=== PATIENT | male | born 1965 | race Caucasian/White ===

== ENCOUNTER 2020-02-10 11:10 | Day surgery (SDC) | payer BC, OTHER ==
[2020-02-10] MEDS ORDERED: Iopamidol 200-M 10 ML vial ITHECAL ONE (12:30)
[2020-02-10] MEDS ORDERED: Lidocaine 2% 5 ML SDV INJECT ONE (12:30)
[2020-02-10] MEDS ORDERED: Betamethasone Acetate/Betamethasone Sod Phosphate 30 MG/5 ML MDV EPIDUR ONE (12:30)
[2020-02-10] MEDS ORDERED: Ropivacaine 0.5% 5 MG/ML 30 ML SDV INJECT ONE (12:30)
--- NOTE | 2020-02-10 18:13 | OR ---
SURGEON: Vianney Benton D.O. DATE OF PROCEDURE: 02/10/2020 PRIMARY SURGEON: Vianney Benton D.O. OR STAFF PRESENT: 1. Latoya Mckinnon RT. 2. David Triplett RN. 3. aMlachi Grimaldo RN. WOUND CLASS: I. PREOPERATIVE DIAGNOSES: 1. Lumbar spondylosis. 2. Lumbar facet syndrome. 3. Chronic low back pain. 4. Lumbar degenerative disk disease. POSTOPERATIVE DIAGNOSES: 1. Lumbar spondylosis. 2. Lumbar facet syndrome. 3. Chronic low back pain. 4. Lumbar degenerative disk disease. PROCEDURES PERFORMED: 1. Bilateral L3-4 facet joint injections. 2. Bilateral L4-5 facet joint injections. 3. Bilateral L5-S1 facet joint injections. 4. Fluoroscopic guidance for needle placement. 5. Local with oral valium for sedation. SCREENING QUESTIONS: The patient answered "No" to all the following questions: 1. Are you allergic to iodine, Betadine or latex? 2. Do you have a bleeding disorder? 3. Are you on anti-inflammatories or blood thinners? 4. Do you have any current local or systemic infections? The patient had the procedure thoroughly explained including risks, benefits and alternatives. Consent was signed in my clinic indicating understanding and willingness to proceed. The patient presented to [facility] and was escorted to the dressing room to disrobe and change into a hospital gown. Preoperative history and screening were performed by my nurse. Vital signs were taken and stable. The patient reported that Valium 10 milligrams was taken prior to the procedure. The patient was brought back to the procedure room and placed in the prone position on the procedure room table. A pillow was placed under the abdomen in order to flatten the lumbar lordosis. The back was prepped with ChloraPrep and sterilely draped. All personnel in the procedure room were dressed in appropriate attire including surgical scrubs, head and shoe covers. This was to ensure sterility while in the treatment room. During the time fluoroscopy was in use all personnel in the operating room wore lead ga with thyroid collars. Sterile technique was used during the procedure. The fluoroscope was positioned to provide a right oblique view. Then the right L3-4 facet injection was begun by anesthetizing the skin and soft tissues with 2 cubic centimeters of 2% Preservative-Free Lidocaine with a 25-gauge 1.5 inch needle. There were no signs of infection at the site of needle skin insertions. Using fluoroscopic guidance a sterile 22-gauge 3.5 inch spinal needle was positioned at the junction of the " ear of the marylou dog" Precise needle placement was confirmed by fluoroscopy and 0.2 cubic centimeters of IsoVue-200 contrast dye which was injected through microbore tubing under live fluoroscopy and showed no intravascular flow pattern and adequate flow over the target facet joint. Then 1.0 cubic centimeters of a mixture of Celestone and local was injected slowly without complications after negative aspiration. The procedure was repeated on the left As above for the left L3-4 facet joint injection without complications Then the fluoroscope was positioned to provide a right oblique view for the right L4-5 facet joint injection. This was begun by anesthetizing the skin and soft tissues. The fluoroscope was positioned and a sterile 22-gauge 3.5 inch needle was placed at the junction of the "ear of the Marylou dog" . Precise needle placement was confirmed by fluoroscopy and with 0.2 cubic centimeters increments of IsoVue-200 contrast dye was injected through microbore tubing under live fluoroscopy which showed no intravascular flow pattern and adequate flow over the target medial branch. After negative aspiration,1.0 cubic centimeters of Celestone and local was injected without complications. The procedure was then repeated for the left L4-5 facet joint injection as above without complications. The fluoroscope was then positioned to provide a right L5-S1 facet joint injection This was begun by anesthetizing the skin and soft tissues over the right sacral sulcus. Then using fluoroscopic guidance, a sterile 22-gauge 3.5 inch spinal needle was positioned at the junction of the "ear of the Marylou dog". Precise needle placement was confirmed by fluoroscopy in AP and oblique views, and with 0.2 cubic centimeters increments of IsoVue-200 contrast dye was injected through microbore tubing under live fluoroscopy and showed no intravascular flow pattern and adequate flow over the target joint. After negative aspiration, 1.0 cubic centimeters of Celestone and local was injected. No complications were noted. Procedure was then repeated for the left L5-S1 facet joint injection as above without complications. The procedure was well tolerated and vital signs were stable during and after the procedure. The staff escorted the patient to the recovery area in stable condition. The patient was given both oral and written discharge and followup instructions. The patient voiced understanding including understanding of those signs and symptoms that would require emergency care and knows how to contact the office if there are any questions or concerns in the meantime. PREOPERATIVE PAIN: 02/15 POSTOPERATIVE PAIN: 08/18 FOLLOWUP: In the Pain Clinic with pain diary in one month. ROMINA / BRII /[id number] JULIAN
== END 2020-02-10 13:30 | disposition home or self-care (01) ==
LOC: MW.SDS 11:10
PROVIDERS: ATTEND Anesthesiology
DX: G89.29 Other chronic pain (principal); M51.36 Other intervertebral disc degeneration, lumbar region; M47.817 Spondylosis without myelopathy or radiculopathy, lumbosacral region; M79.18 Myalgia, other site; Z88.0 Allergy status to penicillin
CPT/HCPCS: 64493; 64494; 64495; J0702; J2001; J2795; Q9966

== ENCOUNTER 2020-04-30 18:01 | Emergency (ER) | payer OTHER, BC ==
[2020-04-30] MEDS ORDERED: Sodium Chloride 0.9% 2.5 ML Syringe FLUSH PRN (18:15)
[2020-04-30] MEDS ORDERED: Sodium Chloride 0.9% 10 ML Syringe FLUSH PRN (18:15)
[2020-04-30] MEDS ORDERED: fentaNYL 50 MCG/ML SDV IVPUSH ONE (18:41)
[2020-04-30] MEDS ORDERED: Ondansetron 4 MG/2 ML SDV IVPUSH ONE (18:41)
[2020-04-30 18:44] LABS: BLOOD UREA NITROGEN,BUN 17 mg/dL (7.0-18.0); CARBON DIOXIDE,CO2 28.8 mmol/L (21.0-32.0); CHLORIDE,CL 102 mmol/L (98-107); GLUCOSE RANDOM 111 mg/dL (74-106); POTASSIUM,K 3.9 mmol/L (3.5-5.1); SODIUM,NA 139 mmol/L (136-148)
--- NOTE | 2020-04-30 18:50 | PCM.SN.2 ---
- Free Text/Narrative Note: Brief triage/screening note 54-year-old male with a past medical history of CAD status post stenting x3, hypertension, hyperlipidemia, hernia presenting for right flank pain. Was seen at [facility] on 04/25/2020 and diagnosed with a 3 mm kidney stone. Was prescribed Percocet and Flomax and referred to a urologist. Has had severe intermittent pain throughout the week with nausea and constipation. Apparently spoke with the [facility] clinic who directed him to come to our emergency department, he was told that the urologist would come see him in the emergency departments evening to remove the kidney stone. Complains of persistent pain and nausea. Ordered IV access, labs, urinalysis, fentanyl, Zofran. Will sign out to oncoming nighttime physician Dr. Tafoya.
[2020-04-30] MEDS ORDERED: Ketorolac 15 MG/ML SDV IVPUSH ONE (19:30)
[2020-04-30] MEDS ORDERED: Lactated Ringers 1,000 ML IV ONE (19:30)
--- NOTE | 2020-04-30 19:49 | EDM.PDOC ---
ED HPI GENERAL MEDICAL PROBLEM - General Chief Complaint: Flank Pain Time Seen by Provider: 04/30/20 18:14 Source of Information: Reports: Patient History Limitations: Reports: No Limitations - History of Present Illness INITIAL COMMENTS - FREE TEXT/NARRATIVE: 54-year-old male with history of CAD with 3 stents, HTN, HLD, right-sided inguinal hernia presents with right flank pain. Pain is localized to the right flank and radiates to the right lower quadrant, described as sharp, intermittent, severe, with no alleviating or exacerbating factors. Patient was seen on Sunday at [facility] and was told that he had. 3 mm stone "high in the right flank"with a right-sided inguinal hernia. He was prescribed Percocet and Flomax. Pain has gotten worse since his discharge from the ER, associated with nausea, vomiting, chills, persistent pain despite taking Percocet 2-3 tabs every 4 hours. Denies fever, hematuria, chest pain, shortness of breath. ROS: A 10-point review of systems, other than pertinent positives and negatives as stated per HPI, is otherwise negative Past medical history: No additional pertinent history Past Surgical history: No additional pertinent history Social history: No additional pertinent history Family history: No additional pertinent history PHYSICAL EXAM General: AOx4, GCS = 15, moderate distress HEENT: dry mucous membrane Neck: supple, no meningismus, no Kernig or Brudzinski Cardiac: S1S2 RRR Respiratory: CTAB, no crackles or rales, no wheezing Abdomen: Soft, RLQ ttp, no rebound or guarding, nondistended, no pulsatile mass. Back: nontender, right CVA tenderness Musculoskeletal: NVI distally, no deformity Neuro: No focal deficits, CN 2 - 12 WNL. right flank Pain Score (Numeric/FACES): 10 - Related Data Allergies Allergy/AdvReac Type Severity Reaction Status Date / Time Penicillins Allergy Other Verified 04/30/20 18:39 Home Meds: Home Meds Enalapril [Vasotec] 1 tab PO ASDIRECTED 04/30/20 [History] Metoprolol Succinate 1 tab PO ASDIRECTED 04/30/20 [History] atorvaSTATin [Lipitor] 1 tab PO ASDIRECTED 04/30/20 [History] Past Medical History Cardiovascular History: Reports: High Cholesterol, Hypertension Gastrointestinal History: Reports: GERD - Infectious Disease History Infectious Disease History: Reports: Chicken Pox ED ROS GENERAL - Review of Systems Review Of Systems: See Below (see dictation) ED EXAM, GENERAL - Physical Exam Exam: See Below (see dictation) Course - Vital Signs Last Recorded V/S: Last Vital Signs Temp 96.0 F L 04/30/20 18:23 Pulse 64 04/30/20 18:23 Resp 16 04/30/20 18:23 BP 157/111 H 04/30/20 18:23 Pulse Ox 97 04/30/20 18:23 - Orders/Labs/Meds Orders: Active Orders 24 hr Category Date Time Status Pulse Oximetry [RC] ASDIRECTED Care 04/30/20 18:15 Active Sodium Chloride 0.9% [Saline Flush] Med 04/30/20 18:15 Active 10 ml FLUSH ASDIRECTED PRN Sodium Chloride 0.9% [Saline Flush] Med 04/30/20 18:15 Active 2.5 ml FLUSH ASDIRECTED PRN Saline Lock Insert [OM.PC] Stat Oth 04/30/20 18:15 Ordered Medication Orders Sodium Chloride (Saline Flush) 10 ml FLUSH ASDIRECTED PRN PRN Reason: Keep Vein Open Last Admin: 04/30/20 18:56 Dose: 10 ml Documented by: LAURA Sodium Chloride (Saline Flush) 2.5 ml FLUSH ASDIRECTED PRN PRN Reason: Keep Vein Open Last Admin: 04/30/20 18:56 Dose: 2.5 ml Documented by: LAURA Labs: Laboratory Tests 04/30/20 04/30/20 04/30/20 Range/Units 18:17 18:17 18:30 WBC 5.91 (4.0-11.0) K/uL RBC 5.41 (4.50-5.90) M/uL Hgb 17.2 H (13.0-17.0) g/dL Hct 49.9 (38.0-50.0) % MCV 92.2 (80.0-98.0) fL MCH 31.8 (27.0-32.0) pg MCHC 34.5 (31.0-37.0) g/dL RDW Std Deviation 41.6 (28.0-62.0) fl RDW Coeff of Surendra 12 (11.0-15.0) % Plt Count 151 (150-400) K/uL MPV 10.30 (7.40-12.00) fL Neut % (Auto) 67.7 (48.0-80.0) % Lymph % (Auto) 17.9 (16.0-40.0) % [place] % (Auto) 11.8 (0.0-15.0) % Eos % (Auto) 2.4 (0.0-7.0) % Baso % (Auto) 0.2 (0.0-1.5) % Neut # (Auto) 4.0 (1.4-5.7) K/uL Lymph # (Auto) 1.1 (0.6-2.4) K/uL [place] # (Auto) 0.7 (0.0-0.8) K/uL Eos # (Auto) 0.1 (0.0-0.7) K/uL Baso # (Auto) 0.0 (0.0-0.1) K/uL Nucleated RBC % 0.0 /100WBC Nucleated RBCs # 0 K/uL INR 0.99 Lactate (0.20-2.00) mmol/L Sodium 139 (136-148) mmol/L Potassium 3.9 (3.5-5.1) mmol/L Chloride 102 (98-107) mmol/L Carbon Dioxide 28.8 (21.0-32.0) mmol/L BUN 17 (7.0-18.0) mg/dL Creatinine 1.1 (0.8-1.3) mg/dL Est Cr Clr Drug Dosing 71.78 mL/min Estimated GFR (MDRD) > 60.0 ml/min Glucose 111 H (74-106) mg/dL Calcium 9.2 (8.5-10.1) mg/dL Total Bilirubin 0.6 (0.2-1.0) mg/dL AST 21 (15-37) IU/L ALT 43 (14-63) IU/L Alkaline Phosphatase 84 (46-116) U/L Total Protein 7.3 (6.4-8.2) g/dL Albumin 3.6 (3.4-5.0) g/dL Globulin 3.7 (2.6-4.0) g/dL Albumin/Globulin Ratio 1.0 (0.9-1.6) Lipase (73-393) U/L Urine Color Urine Appearance Urine pH (5.0-8.0) Ur Specific Mobile (1.001-1.035) Urine Protein (NEGATIVE) mg/dL Urine Glucose (UA) (NEGATIVE) mg/dL Urine Ketones (NEGATIVE) mg/dL Urine Occult Blood (NEGATIVE) Urine Nitrite (NEGATIVE) Urine Bilirubin (NEGATIVE) Urine Urobilinogen (<2.0) EU/dL Ur Leukocyte Esterase (NEGATIVE) Urine RBC (0-2/HPF) Urine WBC (0-5/HPF) Ur Epithelial Cells (NONE-FEW) Urine Bacteria (NEGATIVE) SARS-CoV-2 RNA (CB) (NEGATIVE) 04/30/20 04/30/20 04/30/20 Range/Units 18:30 18:30 18:55 WBC (4.0-11.0) K/uL RBC (4.50-5.90) M/uL Hgb (13.0-17.0) g/dL Hct (38.0-50.0) % MCV (80.0-98.0) fL MCH (27.0-32.0) pg MCHC (31.0-37.0) g/dL RDW Std Deviation (28.0-62.0) fl RDW Coeff of Surendra (11.0-15.0) % Plt Count (150-400) K/uL MPV (7.40-12.00) fL Neut % (Auto) (48.0-80.0) % Lymph % (Auto) (16.0-40.0) % [place] % (Auto) (0.0-15.0) % Eos % (Auto) (0.0-7.0) % Baso % (Auto) (0.0-1.5) % Neut # (Auto) (1.4-5.7) K/uL Lymph # (Auto) (0.6-2.4) K/uL [place] # (Auto) (0.0-0.8) K/uL Eos # (Auto) (0.0-0.7) K/uL Baso # (Auto) (0.0-0.1) K/uL Nucleated RBC % /100WBC Nucleated RBCs # K/uL INR Lactate 1.5 (0.20-2.00) mmol/L Sodium (136-148) mmol/L Potassium (3.5-5.1) mmol/L Chloride (98-107) mmol/L Carbon Dioxide (21.0-32.0) mmol/L BUN (7.0-18.0) mg/dL Creatinine (0.8-1.3) mg/dL Est Cr Clr Drug Dosing mL/min Estimated GFR (MDRD) ml/min Glucose (74-106) mg/dL Calcium (8.5-10.1) mg/dL Total Bilirubin (0.2-1.0) mg/dL AST (15-37) IU/L ALT (14-63) IU/L Alkaline Phosphatase (46-116) U/L Total Protein (6.4-8.2) g/dL Albumin (3.4-5.0) g/dL Globulin (2.6-4.0) g/dL Albumin/Globulin Ratio (0.9-1.6) Lipase 206 (73-393) U/L Urine Color YELLOW Urine Appearance CLEAR Urine pH 5.5 (5.0-8.0) Ur Specific Mobile 1.025 (1.001-1.035) Urine Protein NEGATIVE (NEGATIVE) mg/dL Urine Glucose (UA) NEGATIVE (NEGATIVE) mg/dL Urine Ketones NEGATIVE (NEGATIVE) mg/dL Urine Occult Blood MODERATE H (NEGATIVE) Urine Nitrite NEGATIVE (NEGATIVE) Urine Bilirubin NEGATIVE (NEGATIVE) Urine Urobilinogen 0.2 (<2.0) EU/dL Ur Leukocyte Esterase NEGATIVE (NEGATIVE) Urine RBC 1-3 (0-2/HPF) Urine WBC 1-3 (0-5/HPF) Ur Epithelial Cells FEW (NONE-FEW) Urine Bacteria FEW (NEGATIVE) SARS-CoV-2 RNA (CB) (NEGATIVE) 04/30/20 Range/Units 20:40 WBC (4.0-11.0) K/uL RBC (4.50-5.90) M/uL Hgb (13.0-17.0) g/dL Hct (38.0-50.0) % MCV (80.0-98.0) fL MCH (27.0-32.0) pg MCHC (31.0-37.0) g/dL RDW Std Deviation (28.0-62.0) fl RDW Coeff of Surendra (11.0-15.0) % Plt Count (150-400) K/uL MPV (7.40-12.00) fL Neut % (Auto) (48.0-80.0) % Lymph % (Auto) (16.0-40.0) % [place] % (Auto) (0.0-15.0) % Eos % (Auto) (0.0-7.0) % Baso % (Auto) (0.0-1.5) % Neut # (Auto) (1.4-5.7) K/uL Lymph # (Auto) (0.6-2.4) K/uL [place] # (Auto) (0.0-0.8) K/uL Eos # (Auto) (0.0-0.7) K/uL Baso # (Auto) (0.0-0.1) K/uL Nucleated RBC % /100WBC Nucleated RBCs # K/uL INR Lactate (0.20-2.00) mmol/L Sodium (136-148) mmol/L Potassium (3.5-5.1) mmol/L Chloride (98-107) mmol/L Carbon Dioxide (21.0-32.0) mmol/L BUN (7.0-18.0) mg/dL Creatinine (0.8-1.3) mg/dL Est Cr Clr Drug Dosing mL/min Estimated GFR (MDRD) ml/min Glucose (74-106) mg/dL Calcium (8.5-10.1) mg/dL Total Bilirubin (0.2-1.0) mg/dL AST (15-37) IU/L ALT (14-63) IU/L Alkaline Phosphatase (46-116) U/L Total Protein (6.4-8.2) g/dL Albumin (3.4-5.0) g/dL Globulin (2.6-4.0) g/dL Albumin/Globulin Ratio (0.9-1.6) Lipase (73-393) U/L Urine Color Urine Appearance Urine pH (5.0-8.0) Ur Specific Mobile (1.001-1.035) Urine Protein (NEGATIVE) mg/dL Urine Glucose (UA) (NEGATIVE) mg/dL Urine Ketones (NEGATIVE) mg/dL Urine Occult Blood (NEGATIVE) Urine Nitrite (NEGATIVE) Urine Bilirubin (NEGATIVE) Urine Urobilinogen (<2.0) EU/dL Ur Leukocyte Esterase (NEGATIVE) Urine RBC (0-2/HPF) Urine WBC (0-5/HPF) Ur Epithelial Cells (NONE-FEW) Urine Bacteria (NEGATIVE) SARS-CoV-2 RNA (CB) NEGATIVE (NEGATIVE) Meds: Medications Generic Name Dose Route Start Last Admin Trade Name Freq PRN Reason Stop Dose Admin Sodium Chloride 10 ml 04/30/20 18:15 04/30/20 18:56 Saline Flush FLUSH 10 ml ASDIRECTED PRN Administration Keep Vein Open Sodium Chloride 2.5 ml 04/30/20 18:15 04/30/20 18:56 Saline Flush FLUSH 2.5 ml ASDIRECTED PRN Administration Keep Vein Open Discontinued Medications Generic Name Dose Route Start Last Admin Trade Name Freq PRN Reason Stop Dose Admin Fentanyl 50 mcg 04/30/20 18:41 04/30/20 18:56 Fentanyl IVPUSH 04/30/20 18:42 50 mcg ONETIME ONE Administration Lactated Ringer's 1,000 mls @ 999 mls/hr 04/30/20 19:30 04/30/20 20:37 Ringers, Lactated IV 04/30/20 20:30 999 mls/hr .BOLUS ONE Administration Iopamidol 100 ml 04/30/20 20:12 04/30/20 20:13 Isovue Multipack-370 (76%) IVPUSH 04/30/20 20:13 100 ml ONETIME STA Administration Ketorolac Tromethamine 15 mg 04/30/20 19:30 04/30/20 20:38 Toradol IVPUSH 04/30/20 19:31 15 mg ONETIME ONE Administration Ondansetron HCl 4 mg 04/30/20 18:41 04/30/20 18:56 Zofran IVPUSH 04/30/20 18:42 4 mg ONETIME ONE Administration - Re-Assessments/Exams Free Text/Narrative Re-Assessment/Exam: 04/30/20 19:00 This patient was signed out to me from Dr. Tejeda at this time. I promptly performed a detailed physical examination, my examination was performed after ED treatments were initiated by the signout provider. Patient has been under the care of the previous provider up until this point. 04/30/20 22:26 After IVF and pain meds in the ER, his pain resolved and he is currently stable for discharge. I performed a repeat exam and did not appreciate new abnormal findings. Patient exhibits normal vital signs and has a normal gait on road test. I advised the patient to return to the ER for reevaluation if symptoms worsened, including fever, worsening pain, or any other worrisome symptoms. I instructed the patient to follow up with urology Dr. Tan in 3 days. MEDICAL DECISION MAKING: I reviewed the patients past medical records, lab and radiographic findings. I discussed the case with the patient. My differential diagnosis included: Right ureteral stone, incarcerated inguinal hernia. Patient CT today demonstrated resolvent of his right ureteral stone present on his previous CAT scan, which at that time was a nonobstructing 3 mm stone in the proximal right ureter with moderate hydro-, with a large right inguinal hernia with a loop of small bowel demonstrating no obstruction or strangulation but exam at that time was limited with out IV contrast. Today's CT did not demonstrate a right ureteral stone, it did demonstrate clinical findings suggestive of a recently passed stone, with hematuria on the UA. His right inguinal hernia did not demonstrate incarcerated loops of bowel or strangulation. His pain was resolved in the ER, he is stable for outpatient follow-up with urology as needed. Departure - Departure Time of Disposition: 22:30 Disposition: Home, Self-Care 01 Condition: Good Clinical Impression: Ureteral calculi Inguinal hernia Qualifiers: Obstruction and gangrene presence: without obstruction or gangrene Laterality: unilateral Recurrence: recurrent Qualified Code(s): K40.91 - Unilateral inguinal hernia, without obstruction or gangrene, recurrent - Discharge Information *PRESCRIPTION DRUG MONITORING PROGRAM REVIEWED*: Not Applicable *COPY OF PRESCRIPTION DRUG MONITORING REPORT IN PATIENT MARIANNE: Not Applicable Instructions: Inguinal Hernia, Adult, [id number] Referrals: Jean Claude Cruz NP [Primary Care Provider] - Michela Tan MD [Physician] - Forms: ED Department Discharge Additional Instructions: The need for follow-up, as well as the timing and circumstances, are variable depending upon the specifics of your emergency department visit. If you don't have a primary care physician on staff, we will provide you with a referral. We always advise you to contact your personal physician following an emergency department visit to inform them of the circumstance of the visit and for follow-up with them and/or the need for any referrals to a consulting specialist. The emergency department will also refer you to a specialist when appropriate. This referral assures that you have the opportunity for follow-up care with a specialist. All of these measure are taken in an effort to provide you with optimal care, which includes your follow-up. Under all circumstances we always encourage you to contact your private physician who remains a resource for coordinating your care. When calling for follow-up care, please make the office aware that this follow-up is from your recent emergency room visit. If for any reason you are refused follow-up, please contact the [facility] Emergency Department at and asked to speak to the emergency department charge nurse. If you do not have a primary care doctor, please follow up with the clinics below within 3-[address] [facility] - Primary Care [address] [place] [address] [id number] [address] [address] Sepsis Event Note (ED) - Evaluation Sepsis Screening Result: No Definite Risk - Focused Exam Vital Signs: Vital Signs Temp Pulse Resp BP Pulse Ox 04/30/20 18:23 96.0 F L 64 16 157/111 H 97
[2020-04-30] MEDS ORDERED: Iopamidol 755 MG/ML 500 ML Multipack Bottle IVPUSH STA (20:12)
--- NOTE | 2020-04-30 21:44 | CT ---
INDICATION: Right abdominal pain TECHNIQUE: CT abdomen and pelvis acquired without and with IV contrast. 100 mL of Isovue 370 administered. COMPARISON: None available FINDINGS: Lower chest: A small hiatal hernia. Apparent mild thickening of the distal esophageal wall. Curvilinear areas of fat attenuation along the distal left ventricular wall compatible with a chronic infarct, with mild resulting inferior wall aneurysmal dilatation. Liver: Unremarkable. Spleen: An irregular low-attenuation nonenhancing area in the superior aspect of the spleen, suggestive of an infarct, with increased adjacent enhancement which could represent reactive hyperemia. A heterogeneously enhancing lesion is and less likely consideration. Pancreas: Unremarkable. Gallbladder and bile ducts: Unremarkable. Adrenal glands: Unremarkable. Kidneys: No hydronephrosis. Ill defined areas of high attenuation in the left renal collecting system on the precontrast images are suggestive of small excreted contrast from a prior administration. Otherwise, no discrete urolithiasis. A 1.9 x 1.5 cm higher than water attenuation right renal lower pole lesion. A 1.5 x 1.2 cm exophytic left renal upper pole cyst and few additional sub centimeter renal low-density lesions which could represent small cysts as well. Mild perirenal changes, nonspecific. Slight urothelial enhancement in the right ureter and mild asymmetrical enhancement at the right UVJ. GI tract: Mild gastric antral wall thickening versus under distention. A right inguinal hernia containing a short segment of decompressed small bowel and adjacent fluid. No associated mechanical obstruction. The appendix is not seen. No significant pericolonic changes. Vascular structures: Atherosclerotic changes. Lymph nodes: Unremarkable. Miscellaneous: No significant intraperitoneal free fluid or free air. A small fat containing paraumbilical hernia. Pelvic Organs: Upper limits of normal prostatic size. No bladder calcifications. Bones: Degenerative changes in the spine. A prominent central disc protrusion at L4-5, narrowing the thecal sac. IMPRESSION: No obstructive uropathy or definite urolithiasis. Focal asymmetrical enhancement at the right UVJ and mild urothelial enhancement in the right ureter. Correlate for a UTI. A right inguinal hernia containing a small bowel segment and small fluid, without associated mechanical obstruction. Correlate clinically to exclude partial incarceration. A 1.9 cm higher than water attenuation right renal lesion, not well evaluated. Recommend follow-up evaluation with contrast MRI to exclude neoplasm. An irregular nonenhancing area in the superior spleen suggestive of an infarct, with possible adjacent reactive hyperemic enhancement. A heterogeneously enhancing splenic mass is less likely, however this can be further evaluated with contrast MRI as well. A small hiatal hernia with apparent mild thickening of the distal esophageal wall. Correlate clinically for distal esophagitis. Other findings as above. Please note that all CT scans at this facility use dose modulation, iterative reconstruction, and/or weight-based dosing when appropriate to reduce radiation dose to as low as reasonably achievable. Dictated by Erik Padilla MD @ Apr 30 2020 9:13PM Signed by Dr. Erik Padilla @ Apr 30 2020 9:43PM
== END 2020-04-30 22:49 | disposition home or self-care (01) ==
LOC: MW.ED 18:01
DX: K40.91 Unilateral inguinal hernia, without obstruction or gangrene, recurrent (principal); N20.1 Calculus of ureter; I10 Essential (primary) hypertension; E78.5 Hyperlipidemia, unspecified; I25.10 Atherosclerotic heart disease of native coronary artery without angina pectoris; Z95.5 Presence of coronary angioplasty implant and graft; Z20.828 Contact with and (suspected) exposure to other viral communicable diseases; Z79.899 Other long term (current) drug therapy
CPT/HCPCS: 36415; 74178; 80053; 81001; 83605; 83690; 85025; 85610; 87635; 96374; 96375; 99284; J1885; J2405; J3010; J7120; Q9967; U0002